=== PATIENT | female | born 1990 | race Two or more races ===

== ENCOUNTER 2021-02-11 19:25 | Emergency (ER) | payer SELFPAY ==
[~2021-02-11] VITALS: Ht 157.5 cm; Wt 54.4 kg
[2021-02-11] MEDS ORDERED: SODIUM CHLORIDE 0.9% 1,000 ML IV ONE (20:00)
[2021-02-11] MEDS ORDERED: ONDANSETRON HCL 4 MG/2 ML VIAL IV ONE (20:00)
[2021-02-11 20:04] VITALS: BP 130/96
== END 2021-02-11 21:32 | disposition left against medical advice (07) ==
LOC: ER 19:25 → EDBD 19:25 → ER 21:00
DX: R11.2 Nausea with vomiting, unspecified (principal); R55 Syncope and collapse; R53.1 Weakness; F11.10 Opioid abuse, uncomplicated; F17.210 Nicotine dependence, cigarettes, uncomplicated; F15.10 Other stimulant abuse, uncomplicated; Z53.29 Procedure and treatment not carried out because of patient's decision for other reasons; Z98.51 Tubal ligation status
CPT/HCPCS: 93005